=== PATIENT | female | born 1980 ===

== ENCOUNTER 2018-04-16 09:25 | Emergency (ER) | payer SELFPAY ==
[2018-04-16 09:31] VITALS: RESP 18; TEMP 97.8; O2SAT 100
--- NOTE | 2018-04-16 09:50 | ED PDOC ---
HPI: Eye Injury/Pain Time Seen by Provider: 04/16/18 09:42 History Per: Patient Onset/Duration Of Symptoms: Other (2 weeks) Current Symptoms Are (Timing): Still Present Additional Complaint(s): Swelling and redness right upper eyelid x 2 weeks. No pain or eye discomfort. No change in vision. No discharge. Past Medical History Vital Signs: Last Vital Signs Temp 97.8 F 04/16/18 09:30 Pulse 69 04/16/18 09:30 Resp 18 04/16/18 09:30 BP 98/59 L 04/16/18 09:30 Pulse Ox 100 04/16/18 09:30 - Medical History PMH: No Chronic Diseases - Family History Family History: States: Unknown Family Hx - Immunization History Hx Tetanus Toxoid Vaccination: No Hx Influenza Vaccination: No Hx Pneumococcal Vaccination: No - Home Medications Home Medications: Ambulatory Orders Medication Instructions Recorded Phenazopyridine Hydrochlorid2 1 tab PO TID #15 tab 10/23/14 [Pyridium] Sulfamethoxazole/Trimethoprim 1 tab PO BID #14 tab 10/23/14 [Bactrim DS 800 mg-160 mg] Naproxen 500 mg PO Q12 #20 tab 11/03/14 Sulfamethoxazole/Trimethopri 1 PO BID 11/03/14 [Bactrim Ds 800 mg-160 mg] Tobramycin 0.3% [Tobramycin 5 Ml] 1 drop OP TID #1 bottle 04/16/18 - Allergies Allergies/Adverse Reactions: Allergies Allergy/AdvReac Type Severity Reaction Status Date / Time No Known Allergies Allergy Verified 09/08/14 13:05 Review of Systems Constitutional: Negative for: Fever Eyes: Positive for: Other (Swelling upper lid). Negative for: Pain, Vision Change, Redness Physical Exam - Physical Exam Appears: Positive for: Non-toxic, No Acute Distress Skin: Positive for: Normal Color, Warm, DRY Eye Exam: Positive for: EOMI, PERRL, Other (1 cm round cystic swelling right upper lid. No discharge). Negative for: Periorbital swelling, Periorbital tenderness, Conjunctival injection - ECG O2 Sat by Pulse Oximetry: 100 Disposition - Clinical Impression Clinical Impression: Eyelid cyst - Patient ED Disposition Is Patient to be Admitted: No Counseled Patient/Family Regarding: Diagnosis, Need For Followup, Rx Given - Disposition Referrals: Anuj Beard MD [Staff Provider] - Disposition: Routine/Home Disposition Time: 09:51 Condition: FAIR Prescriptions: Tobramycin 0.3% [Tobramycin 5 Ml] 1 drop OP TID #1 bottle Instructions: Epidermal Cyst Print Language: MAURITIAN
[2018-04-16 10:03] VITALS: BP 104/62; PULSE 68
== END 2018-04-16 10:03 | disposition home or self-care (01) ==
LOC: H.ER 09:25
DX: H02.821 Cysts of right upper eyelid (principal)

== ENCOUNTER 2018-09-09 19:58 | Inpatient (IN) | payer MEDICAID, SELFPAY ==
[2018-09-09 20:29] VITALS: BMI 30.6
[2018-09-09 20:48] VITALS: RESP 18; O2SAT 100
[2018-09-09 21:34] LABS: BASO % 0.5 % (0.0-2.0); EOS % 0.4 % (0.0-4.0); HEMOGLOBIN 10.1 g/dL (12.0-16.0); LYMPH # 1.4 K/uL (1.0-4.3); LYMPH % 17.7 % (20.0-40.0); MEAN CELL VOLUME 74.5 fl (81.0-99.0); MEAN CORPUSCULAR HEMOGLOBIN 23.7 pg (27.0-31.0); MEAN CORPUSCULAR HGB CONC 31.8 g/dL (33.0-37.0); MEAN PLATELET VOLUME 9.4 fl (7.2-11.7); MONO # 0.6 K/uL (0.0-0.8); MONO % 7.4 % (0.0-10.0); NEUT # 5.9 K/uL (1.8-7.0); NRBC % 0.1 % (0.0-0.0); RBC 4.25 Mil/uL (3.80-5.20); RED CELL DISTRIBUTION WIDTH 18.2 % (11.5-14.5); WHITE BLOOD COUNT 7.9 K/uL (4.8-10.8)
[2018-09-10] MEDS ORDERED: Lactated Ringer's 1,000 ML IV SCH (06:15)
[2018-09-10] MEDS: Lactated Ringer's 1,000 ML IV SCH ×3 (07:09→14:44)
--- NOTE | 2018-09-10 08:04 | OBHP ---
Datetime: 09/09/2018 20:00 IP Adm Impression: Term, intrauterine ; No Active Labor; Intact Membranes IP Admit Plan: Admit to unit; Initiate labor induction protocol Admit Comment, IP Provider: 38 y/o female at 39.0 wks GA presents to LD for scheduled IOL. She denies vaginal bleeding, fluid loss. Endorses movement. Denies headache/n/v/chest pain/urin iqra sx. OB: Kit Serna Obhx: full term x 4 Pmhx: denies HomeRx: vitamins Allergies: NKDA Socialhx: denies toxic habits Surghx: denies Famhx: denies ROS: all systems reviewed and negative except per HPI Physical exam: Gen: sitting up comfortably in bed, NAD Heart: s1 s2 present, RRR Lungs: normal respiratory effort, clear to auscultation bilaterally Abd: gravid. normal BS. Soft, non-tender Extremities: no swelling/erythema/tenderness Psych: normal affect. good eye contact. cooperative Assessment and Plan 38 y/o female at 39.0 wks GA presents to LD for scheduled IOL due to AMA GBS neg, HIV neg, RPR neg, HsBag neg, rubella immune Admit to D CBC, type and screen Can have epidural; anesthesiology consulted Start cytotec 25mg PO once, then Cytotec 50mg PO Q4H Case discussed w/ attending, Dr. Esteban Lam OB Hospitalist on-call With PGY1, i saw and examined this patinet. Agree with note. DAMICAHVEZ Notified that she declined IOL. May want C/S. Procedure with risks/complications discussed. She understands. She just ate dinner before arrival. Will speak to PMD at [facility] Pelvic Type - PN: Adequate Extremities - PN: Normal Abdomen - PN: Normal Back - PN: Normal Breast - PN: Not Done Lungs - PN: Normal Heart - PN: Normal Thyroid - PN: Not Done Neurologic - PN: Not Done HEENT - PN: Not Done General - PN: Normal FHR - Baseline A Provider: 150 Contraction Comments Provider: occasional Gestation - Est Wks by US: 39.0 IP Hx Assessment: The History has been Reviewed and is Current Vital Signs Provider: Reviewed; Within Normal Limits IP Indication for Induction Oth: AMA IP Chief Complaint: Scheduled induction of labor NICHD Variability Prov Fetus A: Moderate 6-25bpm NICHD Accel Fetus A IP Provider: [id number] NICHD Decel Fetus A IP Provider: None Dilatation, Provider: 1 Effacement, Provider: thick Station, Provider: high Genitourinary Exam: Normal DTRs - PN: Not Done
[2018-09-10] MEDS ORDERED: Oxytocin 30 UNIT in NS 500 ml 30 UNITS/500 ML BAG IV ONE ×2 (10:43→20:53)
[2018-09-10] MEDS ORDERED: Fentanyl/Bupivacaine HCl 250 ML EPI ONE (11:51)
[2018-09-10] MEDS ORDERED: Bupivacaine HCl 0.5% PF (30 ml) Inj ONE (11:54)
[2018-09-10] MEDS ORDERED: Oxycodone/Acetaminophen 5/325 mg Tab PO PRN ×4 (19:47→21:30)
[2018-09-10] MEDS ORDERED: Benzocaine/Menthol SPRAY TOP PRN ×2 (19:47→21:30)
[2018-09-11 06:23] LABS: BASO % 0.3 % (0.0-2.0); EOS # 0.1 K/uL (0.0-0.7); EOS % 0.5 % (0.0-4.0); HEMOGLOBIN 8.9 g/dL (12.0-16.0); LYMPH # 1.6 K/uL (1.0-4.3); LYMPH % 13.5 % (20.0-40.0); MEAN CELL VOLUME 74.9 fl (81.0-99.0); MEAN CORPUSCULAR HEMOGLOBIN 23.3 pg (27.0-31.0); MEAN CORPUSCULAR HGB CONC 31.1 g/dL (33.0-37.0); MEAN PLATELET VOLUME 9.4 fl (7.2-11.7); MONO # 0.9 K/uL (0.0-0.8); MONO % 7.7 % (0.0-10.0); NEUT # 9.4 K/uL (1.8-7.0); NRBC % 0.1 % (0.0-0.0); RBC 3.8 Mil/uL (3.80-5.20); RED CELL DISTRIBUTION WIDTH 18.1 % (11.5-14.5); WHITE BLOOD COUNT 12.1 K/uL (4.8-10.8)
[2018-09-11] MEDS: Multivitamin With Minerals Tab PO SCH (08:50)
[2018-09-11] MEDS ORDERED: Multivitamin With Minerals Tab PO SCH (09:00)
--- NOTE | 2018-09-11 12:59 | OBPPN ---
Datetime: 09/11/2018 06:00 PP Pain Prov: Within normal limits PP Nausea Prov: Denies PP Flatus Prov: Yes PP BM Prov: No PP Breasts Prov: Not Done PP Heart Prov: Normal PP Lungs Prov: Normal PP Abdomen/Uterus Prov: Normal PP Lochia Prov: Normal PP Vulva/Perineum Prov: Not Done PP CVA Tenderness Prov: Not Done PP Extremities Prov: Normal PP C/S Incision Prov: Not Applicable PP Progress Prov: Normal PP Impression Prov: Normal progression PP Plan Prov: Continue present management PP Progress Note Prov: S: 38 y/o female doing well on PPD1. Patient seen and examined at bedside. Patient passing Flatus, no BM. Tolerating liquid diet. Lochia like menses. No breast feeding difficulties. O:Physical exam: Gen: lying in bed comfortably Heart: S1S2 present, RRR Lungs: normal breathing pattern, clear to auscultation bilaterally Abd: normal bowel sounds, soft, non-tender, fudus firm at umbilicus. Extremities: no swelling/erythema/tenderness Psych: appropriate mood, good eye contact A/P: 38 year old female doing well on PPD1 1. Continue orders 2. Ibuprofen 600 mg PO Q6H PRN 3. Regular diet 4. Encourage ambulation/ 5. Possible discharge on 09/12/18 Case discussed with attending terry Toscano Attending addendum: I saw and examined the patient at bedside myself this morning. I reviewed the resident note above and agree with findings and management. Neda Escalera MD Vital Signs Provider PP: Reviewed; Within Normal Limits
--- NOTE | 2018-09-12 08:18 | OBPPN ---
Datetime: 09/12/2018 06:00 PP Pain Prov: Within normal limits PP Nausea Prov: Denies PP Flatus Prov: Yes PP BM Prov: Yes PP Breasts Prov: Not Done PP Heart Prov: Normal PP Lungs Prov: Normal PP Abdomen/Uterus Prov: Normal PP Lochia Prov: Normal PP Vulva/Perineum Prov: Normal PP CVA Tenderness Prov: Not Done PP Extremities Prov: Normal PP C/S Incision Prov: Not Applicable PP Progress Prov: Normal PP Impression Prov: Normal progression PP Plan Prov: Discharge PP Progress Note Prov: S: 38 y/o female doing well on PPD2. Tolerating PO, ambulating, w/out difficulty. Lochia like menses. Passing gas and BM. O:Physical exam: Gen: lying in bed comfortably Heart: S1S2 present, RRR Lungs: normal breathing pattern, clear to auscultation bilaterally Abd: normal bowel sounds, soft, non-tender, fudus firm at umbilicus. Extremities: no swelling/erythema/tenderness Psych: appropriate mood, good eye contact A/P: 38 year old female doing well on PPD2 1. Continue orders 2. Ibuprofen 600 mg PO Q6H PRN 3. Regular diet 4. Encourage ambulation/ 5. D/C today Case discussed with attending terry Toscano Attending addendum: I saw and examined the patient at bedside myself this morning. I reviewed the resident note above and agree with findings and management DC home today. preeclampsia, infection, and depression precautions given. Undecided about contraception. f/u in office in 4-6 wks. Neda Escalera MD Vital Signs Provider PP: Reviewed; Within Normal Limits
--- NOTE | 2018-09-12 08:21 | OBDCSUM ---
Datetime: 09/12/2018 07:21 Discharged to, Provider: Home Follow up at, Provider: [facility]LE[facility] Disch Instr Activity: Normal activity Disch Instr Diet: Regular Discharge Instructions, Provider: Routine instructions given Discharge Diagnosis, Provider: Term Delivered Discharge Time: 09/12/2018 10:00 Follow up in weeks, Provider: 4 weeks Disch Referrals: None Contraception discussed, Prov: Yes Disch Activity Restrictions: No exercising; No lifting; No sexual activity; Nothing in vagina - Inte rcourse, tampons, douche Discharge Comment, Provider: 38 y/o female s/p NVD on 09/10/18 at 39.0 wk GA. [place]: female 9/9 Post- D/C Summary: No OB complications. No complications during post- period. Lochia i s less than menses. Pt able to pass flatus and BM, voiding well and able to ambulate without difficul ty. Tolerating regular diet w/o N/V. Fundus firm below umbilicus level. Discharge Instructions given to patient: Encourage PNV 1 tab po q/day Ibuprofen 600 mg 1 tab po prn q4-6 if moderate pain. C/W PN vitamin 1 tab QD Ambulatory with caution, nothing per vagina/sex for 4 weeks, no heavy lifting, avoid stairs, if ex cessive bleeding or fever without relief from Tylenol go to ED ED precautions: If excessive bleeding, pain that does not get relief, fever >100.4, palpitations, SOB, CP or other concerning symptom go to the ED. PT was urged if feeling sad, mood swing, depression, neglect of baby, suicidal thoughts, homicidal thoughts go to ER or call 911 for help terry Toscano Case discussed with attending Attending addendum: I saw and examined the patient at bedside myself this morning. I reviewed the resident note above and agree with findings and management DC home today. preeclampsia, infection, and depression precautions given. Undecided about contraception. f/u in office in 4-6 wks. Neda Escalera MD Contraception after Delivery: Undecided
[2018-09-12] MEDS: Multivitamin With Minerals Tab PO SCH (09:28)
[2018-09-13 00:03] VITALS: BP 118/57; PULSE 57; TEMP 97.6
== END 2018-09-12 20:01 | disposition home or self-care (01) | DRG 560 ==
LOC: EDSTATUS 20:11 → H.L&D 20:29 → H.OB/GYN 09-10 21:36
PROVIDERS: ADMIT Obstetrics & Gynecology; ATTEND Obstetrics & Gynecology
PROC: 4A1HXCZ Monitoring of Products of Conception, Cardiac Rate, External Approach (ICD-10-PCS; 2018-09-09)
PROC: 10E0XZZ Delivery of Products of Conception, External Approach (ICD-10-PCS; principal; 2018-09-10)
DX: O77.0 Labor and delivery complicated by meconium in amniotic fluid (principal); Z37.0 Single live birth; Z3A.39 39 weeks gestation of pregnancy